=== PATIENT | male | born 1985 | race Two or more races ===

== ENCOUNTER 2016-11-21 08:43 | Emergency (ER) | payer OTHER ==
[2016-11-21 09:09] VITALS: BP 139/96; PULSE 75; RESP 14; TEMP 98.1; O2SAT 97
--- NOTE | 2016-11-21 09:21 | UCPHY ---
H & P Time Seen by Provider: 11/21/16 08:55 Patient Type: New HPI/ROS: This patient complains of sinus pressure over the past 4 days with facial pain over the past 2 days in the right frontal more than right maxillary location. He has associated green nasal discharge. She had partial relief from ibuprofen yesterday. This morning started developing migraine symptoms consisting of a scintillating scotoma while he was doing nasal rinses in the bathroom. He took sumatriptan prior to arrival with relief of his scotoma and he has 3/10 discomfort to the face currently. He this does not feel like a migraine at this point to him. Does think he has sinusitis and has a long history of this. He also complains of right shoulder pain similar to previous right shoulder pain. He describes this as achy in nature and mild intensity baseline but moderate with AB duction or forward flexion. He reports that he was snowboarding the day before the onset of the shoulder pain 6 days ago. ROS: He reports no high fevers or chills. He denies any confusion or neck stiffness. He reports no focal numbness tingling or weakness. No visual changes currently. He reports occasional cough in the morning the attributes to postnasal drip any clears some mucus when he coughs. Does not have regular cough during the day. No pleuritic chest pain or shortness of breath. He notes no GI symptoms. Except for vomiting when he brushed his teeth this morning attributes to take inadvertently gagging himself. No ongoing nausea. No recent musculoskeletal injuries. He has no shortness of breath. 10 point ROS is otherwise negative Past Medical/Surgical History: Right shoulder dislocation x3, right scapular fracture, coracoid process fracture and clavicle fracture Recurrent sinusitis with sinus surgery for deviated septum for years ago. Social History: No recreational drug use. Occasional alcohol They are visiting this area and usually reside in [place]. The plantar return after the weekend Smoking Status: Unknown if ever smoked Physical Exam: General Appearance: Alert, no distress. Eyes: Pupils equal and round no pallor or injection. ENT, Mouth: Mucous membranes moist. Nose: Patient has swollen nasal mucosa on the right side with purulent appearing discharge in sinus tenderness to percussion in the frontal more than maxillary sinus. Left naris is clear oropharynx no posterior pharyngeal erythema or dysphonia Respiratory: There are no retractions, lungs are clear to auscultation. Cardiovascular: Regular rate and rhythm. Maintains 2+ symmetric radialis pulses bilaterally. Neurological: GCS 15. No axillary nerve deficit. No focal deficits are appreciated. Skin: Warm and dry, no rashes. Musculoskeletal: Atraumatic and normal except for right shoulder Right shoulder: Patient has mild tenderness at the apex anteriorly of the shoulder that increases with AB duction above his head. No difficulty with external rotation mild increase in pain with forward flexion. There is no deformity, swelling or erythema to the shoulder DIFFERENTIAL DIAGNOSIS: After history and physical exam differential diagnosis was considered for bacterial sinusitis, viral rhinosinusitis, migraine that resolved with home treatment, chronic shoulder pain from previous injuries, calcific tendinitis Constitutional: Initial Vital Signs Temperature (C) 36.7 C 11/21/16 08:55 Heart Rate 75 11/21/16 08:55 Respiratory Rate 14 11/21/16 08:55 Blood Pressure 139/96 H 11/21/16 08:55 O2 Sat (%) 97 11/21/16 08:55 O2 Delivery Mode Room Air Allergies/Adverse Reactions: No Known Allergies Allergy (Unverified 11/21/16 09:09) Home Medications: Medication Instructions Recorded Amoxicillin Trihydrate [Amoxil] 500 mg PO TID #30 cap 11/21/16 Nasonex 11/21/16 Zyrtec 11/21/16 traMADol [Ultram 50 mg (*)] 50 - 100 mg PO Q4 PRN #20 tab 11/21/16 Medical Decision Making ED Course/Re-evaluation: Patient declined imaging for his shoulder. We both feel that his shoulder symptoms are attributable to previous injuries. He also declined a sling here and will follow up with his physician in [place] when he returns home for further evaluation if he has ongoing symptoms The patient appears well with no clinical findings to suggest [employer] infection or other complicating factors. Departure - Departure Disposition: Home, Routine, Self-Care Clinical Impression: Acute frontal sinusitis Qualifiers: Recurrence: non-recurrent Qualifier Code: (J01.10) Acute frontal sinusitis, unspecified Shoulder pain, right Qualifiers: Chronicity: acute Qualifier Code: (M25.511) Pain in right shoulder Instructions: Sinusitis (ED), Musculoskeletal Pain (ED) Additional Instructions: Diagnosis: 1. Frontal sinusitis 2. Right shoulder pain Plan: Continue ibuprofen Tylenol and/or tramadol in addition as needed. No driving, alcohol or come tramadol Nasonex steroid nasal spray [id number] for 10-14 days Amoxil antibiotic "Wall crawls" to maintain right shoulder mobility Return here to the emergency department for any significant worsening despite the treatment plan [place]errals: [place],. [Primary Care Provider] - As per Instructions Prescriptions: Amoxicillin Trihydrate [Amoxil] 500 mg PO TID #30 cap traMADol [Ultram 50 mg (*)] 50 - 100 mg PO Q4 PRN #20 tab PRN Reason: Pain, Breakthrough - PQRS PQRS Measurement: NA
== END 2016-11-21 09:36 | disposition home or self-care (01) ==
LOC: CED 08:43
DX: J01.10 Acute frontal sinusitis, unspecified (principal); M25.511 Pain in right shoulder
CPT/HCPCS: 99203-PO; G0463-PO